=== PATIENT | female | born 1995 | race Two or more races ===

== ENCOUNTER 2016-07-31 09:48 | Emergency (ER) | payer OTHER ==
[2016-07-31 09:59] VITALS: BP 142/83; PULSE 129; TEMP 98.1; BMI 29.8
[2016-07-31] MEDS ORDERED: ACETAMINOPHEN 500 MG TABLET (FP) ONE (10:56)
--- NOTE | 2016-07-31 11:09 | PDOC ---
History of Present Illness - General Chief Complaint: Respiratory Stated Complaint: COUGH, HEAD PRESSURE Time Seen by Provider: 07/31/16 10:06 History Source: Patient Exam Limitations: No Limitations - History of Present Illness Initial Comments: 07/31/16 11:06 Patient states has been coughing with a runny nose and sinus pressure 2 weeks. Was diagnosed over these past few weeks, but had been taking over-the- counter medications until she found that positive. Patient denies fever, denies purulent drainage from nose, states has a moist cough which is giving her pleuritic type chest pain. States first visit is not schedule until late August Timing/Duration: reports: changing over time Severity: reports: mild, moderate Associated Symptoms: reports: cough, facial pain, nasal congestion, nasal drainage. denies: fever/chills Past History - Travel Traveled outside of the country in the last 30 days: No Close contact w/someone who was outside of country & ill: No - Past Medical History Allergies/Adverse Reactions: Allergies Allergy/AdvReac Type Severity Reaction Status Date / Time No Known Allergies Allergy Verified 07/31/16 09:56 Home Medications: Ambulatory Orders NK [No Known Home Medication] 07/31/16 - Reproductive History (#): 2 Para: 1 Cervical CA: No Dysfunctional Uterine Bleeding: No Ectopic : No Endometrial CA: No Polycystic Ovaries: No Therapeutic (s) & number: No Tubal Ligation: No Spontaneous : 0 - Psycho/Social/Smoking Cessation Hx Anxiety: No Suicidal Ideation: No Smoking History: Never smoked Have you smoked in the past 12 months: No Information on smoking cessation initiated: No Hx Alcohol Use: No Drug/Substance Use Hx: No Substance Use Type: None Review of Systems - Review of Systems Able to Perform ROS?: Yes Is the patient limited Yakut proficient: Yes Constitutional: Yes: Symptoms Reported, See HPI, Chills, Fever, Malaise HEENTM: Yes: See HPI, Nose Pain, Nose Congestion, Throat Pain, Throat Swelling Respiratory: Yes: Symptoms reported, See HPI, Cough. No: Wheezing Musculoskeletal: Yes: Symptoms Reported Integumentary: Yes: Symptoms Reported All Other Systems: Reviewed and Negative *Physical Exam - Vital Signs Last Vital Signs Temp Pulse Resp BP Pulse Ox 98.1 F 129 H 20 142/83 99 07/31/16 09:57 07/31/16 09:57 07/31/16 09:57 07/31/16 09:57 07/31/16 09:57 - Physical Exam General Appearance: Yes: Nourished, Appropriately Dressed, Apparent Distress HEENT: positive: SANTY, Normal ENT Inspection, TMs Normal, Pharynx Normal (no redness, swelling, exudate) Neck: positive: Supple. 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 Will treat conservatively as patient is and there is no evidence of bacterial infection *DC/Admit/Observation/Transfer Diagnosis at time of Disposition: Common cold virus - Discharge Dispostion Disposition: HOME Condition at time of disposition: Stable Admit: No - Referrals Referrals: Aspen Vila MD [Primary Care Provider] - - Patient Instructions Printed Discharge Instructions: DI for Common Cold Additional Instructions: Rest, drink lots of fluids: Teas, water, soups, Pedialyte Saltwater gargles Steamy showers/seem to face break up mucus Avoid contact with others until fevers and cough resolved Lots of handwashing and good hygiene Continue [id number] medications for symptomatic relief Tylenol or Benadryl only in , for fever and pain Followup with private physician in one to 2 days as needed Return to emergency department for worsened symptoms, fevers, dehydration - Post Discharge Activity Work/School Note: Back to Work
== END 2016-07-31 11:10 | disposition home or self-care (01) ==
LOC: JERFT 09:48
DX: J00 Acute nasopharyngitis [common cold] (principal); B97.89 Other viral agents as the cause of diseases classified elsewhere; Z3A.00 Weeks of gestation of pregnancy not specified
CPT/HCPCS: 99281-25

== ENCOUNTER 2017-03-27 14:25 | Inpatient (IN) | payer OTHER ==
[2017-03-27] MEDS ORDERED: PROMETHAZINE HCL 25 MG/1 ML VIAL IVPUSH ONE (18:32)
[2017-03-27] MEDS ORDERED: BUTORPHANOL TARTRATE 1 MG/ML VIAL IVPB ONE (18:32)
[2017-03-27] MEDS ORDERED: DINOPROSTONE 10 MG VAGINAL SUPPOSITORY VG ONE (18:34)
--- NOTE | 2017-03-27 18:41 | HP ---
Past Medical History - Admission Chief Complaint: here for labor induction History of Present Illness: 21 y/o with SIUP at 38 weeks gestation sent up from [facility] office for non reactive NST. Pt pregestational DM on metformin and was getting routing ultrasound/BPP/NST. BPP / but NST nonreactive. Pt sent up to L&D for prolonged monitoring where NST still not reactive for approx 4 hours. otherwise uncomplicated. h/o X 1. GBS negative. 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 Cardiovascular: No: CAD, HTN Pulmonary: No: COPD Gastrointestinal: No: GERD, Irritable Bowel Disease Hepatobiliary: No: Hepatitis B, Hepatitis C Renal/: No: UTI Reproductive: No: Ectopic ...: 3 ...Para: 1 ...Term: 1 ...: 0 ...Spon : 1 ...Induced : 0 ...Multiple Gestation: 0 ...EDC by [facility]: 04/09/17 Heme/Onc: No: Anemia Infectious Disease: No: HIV, MRSA, STD's Psych: No: Depression, Panic Endocrine: Yes: Diabetes Mellitus, Other (PCOS) - Past Surgical History Past Surgical History: Yes: None Hx Myomectomy: No Hx Transabdominal Cerclage: No - Smoking History Smoking history: Never smoked Have you smoked in the past 12 months: No - Alcohol/Substance Use Hx Alcohol Use: No History of Substance Use: reports: None - Social History History of Recent Travel: No Home Medications - Allergies Allergies/Adverse Reactions: Allergies Allergy/AdvReac Type Severity Reaction Status Date / Time No Known Allergies Allergy Verified 03/27/17 14:58 - Home Medications Home Medications: Ambulatory Orders Metformin HCl 500 mg PO DAILY 03/07/17 Vit #108/Iron/FA [ One Tablet] 1 tab PO DAILY 03/07/17 Review of Systems - Review of Systems Constitutional: reports: No Symptoms Eyes: reports: No Symptoms HENT: reports: No Symptoms Neck: reports: No Symptoms Cardiovascular: reports: No Symptoms Respiratory: reports: No Symptoms Gastrointestinal: reports: No Symptoms Genitourinary: reports: No Symptoms Breasts: reports: No Symptoms Reported Musculoskeletal: reports: No Symptoms Integumentary: reports: No Symptoms Neurological: reports: No Symptoms Endocrine: reports: No Symptoms Hematology/Lymphatic: reports: No Symptoms Psychiatric: reports: No Symptoms Physical Exam - Maternity Vital Signs: Vital Signs Temperature 98.4 F 03/27/17 18:00 Pulse Rate 107 H 03/27/17 18:00 Respiratory Rate 20 03/27/17 18:00 Blood Pressure 120/80 03/27/17 18:00 O2 Sat by Pulse Oximetry (%) Constitutional: Yes: Well Nourished, No Distress, Calm Eyes: Yes: Conjunctiva Clear, EOM Intact HENT: Yes: Atraumatic, Normocephalic Neck: Yes: Supple, Trachea Midline Cardiovascular: Yes: Regular Rate and Rhythm Lungs: Clear to auscultation - Abdominal Exam/OB Fundal Height: 37 Number of Fetuses: Single Presentation: Vertex Contractions: Yes Regularity: Irritability Intensity: Unaware Monitor Mode: External Category: I Accelerations: None Decelerations: None - Vaginal Exam/OB Vaginal Bleediing: No Dilatation (cm): 1 Effacement (%): 0 Presentation: Vertex/Position Station: -3 - Physical Exam Extremities: Yes: WNL Edema: No Psychiatric: Yes: Alert, Oriented Hemorrhage Risk Assessment - Risk Factors Medium Risk Factors: Yes: None High Risk Factors: Yes: None Risk Score: 1 Risk Level: Medium Risk Assessment/Plan 21 y/o with SIUP at 38 weeks, pregestational DM, non reactive NST for IOL - AFVSS - FHTS nonreactive, BPP 8/8 - IOL, cervidil placed, for re assess at 6:30 am - pre gestational DM - continue metformin, BGMS AC/HS until active labor then increase to Q2 - GBS negative
[2017-03-27 18:54] VITALS: BMI 36.6
[2017-03-27 19:47] LABS: BASOPHIL 0.2 % (0-2.0); EOSINOPHIL 0.3 % (0-4.5); MCH 23.7 pg (25.7-33.7); MCHC 31.7 g/dl (32.0-36.0); MEAN CELL VOLUME 74.7 fl (80-96); MEAN PLT VOLUME 10.6 fl (7.5-11.1); NEUTROPHILS 82.8 % (42.8-82.8); PLATELET COUNT 212 K/MM3 (134-434); RDW 16.1 % (11.6-15.6); WHITE BLOOD COUNT 11.8 K/mm3 (4.0-10.0)
[2017-03-27 20:02] LABS: INR 1.02 (0.82-1.09); PROTHROMBIN TIME (PATIENT) 11.5 SEC (9.98-11.88)
[2017-03-27 20:05] LABS: ACTIVATED PTT 25.1 SECONDS (26.9-34.4)
[2017-03-27] MEDS: metFORMIN HCL 500 MG TABLET (FP) PO SCH (20:15)
[2017-03-27 20:21] LABS: ANION GAP 12 (8-16); CALCIUM 8.3 mg/dL (8.5-10.1); CO2 21 mmol/L (21-32); CREATININE 0.5 mg/dL (0.55-1.02); GLUCOSE,RANDOM 135 mg/dL (74-106)
[2017-03-28] MEDS ORDERED: OXYTOCIN 15 UNITS/ LR 250 ML 15 UNIT/250 ML INFUS.BAG IVPB SCH (07:00)
[2017-03-28] MEDS: ELECTROLYTE-148 SOLN 1,000 ML IV SCH ×3 (09:35→23:30)
[2017-03-28] MEDS ORDERED: PROMETHAZINE HCL 25 MG/1 ML VIAL IVPUSH ONE (18:30)
[2017-03-28] MEDS ORDERED: BUTORPHANOL TARTRATE 1 MG/ML VIAL IVPB ONE (18:30)
--- NOTE | 2017-03-28 18:30 | PN ---
Ante-Partal Exam - Subjective Subjective: Pt feeling some contractions. no VB/LOF. +FM NO other complaints Vital Signs: Vital Signs Temperature 99.4 F 03/28/17 16:00 Pulse Rate 80 03/28/17 17:00 Respiratory Rate 18 03/28/17 17:00 Blood Pressure 130/80 03/28/17 17:00 O2 Sat by Pulse Oximetry (%) Bleeding: No Headache: No Visual changes: No Right upper quadrant pain: No Pain (scale 1-10): 3 - Contractions Contractions: Yes Regularity: Regular Intensity: Mild/Mod Monitor Mode: External - Exam during Labor Heart Rate: 145 Variability: Minimal Category: I Monitor Accelerations: Present Monitor Decelerations: None Exam: Vaginal Dilatation (cm): 3 Effacement (%): 50 Amniotic Membrane Status: Intact Presentation: Vertex Station: -3 - Assessment/Plan Assessment/Plan: 21 y/o wtih SIUP at 38+ weeks, pre gestational DM, IOL 2/2 nonreactive NST - FHTS cat 1, overall reassuring - IOL, s/p cervidil, pitocin at 9, cervix 3cm now, will take short break from pitocin, eat dinner and restart after dinner - GBS negative - pregestational DM, continue metformin - continue current care
[2017-03-28] MEDS: metFORMIN HCL 500 MG TABLET (FP) PO SCH (20:15)
[2017-03-29] MEDS ORDERED: METHYLERGONOVINE MALEATE 0.2 MG/1 ML AMP IM PRN (03:58)
[2017-03-29] MEDS ORDERED: WITCH HAZEL 50% (TUCKS) 40 PAD/JAR PAD TP PRN (03:58)
[2017-03-29] MEDS ORDERED: BENZOCAINE 20% 57 GM BOTTLE TP PRN (03:58)
[2017-03-29] MEDS ORDERED: BISACODYL 10 MG SUPP.RECT RC PRN (03:58)
[2017-03-29] MEDS ORDERED: BENZOCAINE 28 GM HEMORRHOIDAL OINTMENT TP PRN (03:58)
--- NOTE | 2017-03-29 03:58 | PN ---
Delivery - Delivery Vaginal Delivery: No Problems Type of Anesthesia: Local Episiotomy/Laceration: 1st degree EBL (cc): 300 Delivery, Single - Stages of Labor Date of Delivery: 03/29/17 Time of Delivery: 03:38 Date Placenta Delivered: 03/29/17 Time Placenta Delivered: 03:41 Placenta: Yes: Spontaneous - Condition of Infant Bottom Turner/Tower Crane Operator Present: No Infant Gender: Female Position: OA - 1 Minute Total Score: 9 5 Minutes Total Score: 9 - [place] Feeding Plan Initial Plan: Exclusive throughout hospitalization - Additional Information: normal from direct OA position anterior shoulder (right) delivered along with remainder of mouth and nose bulb suctioned after delivery cord clamped and cut 1st degree laceration repaired with single figure of 8 3-0 vicryl suture 3cc lidocaine injected into perineum at time of repair sponge count correct needle count correct mom stable baby stable
[2017-03-29] MEDS ORDERED: OXYTOCIN 20 UNITS in 0.9% NS 20 UNIT/1,000 ML INFUS.BAG IV SCH (04:00)
[2017-03-29] MEDS: IBUPROFEN 600 MG TABLET (FP) PO PRN ×4 (05:12→17:33)
[2017-03-29] MEDS: ACETAMINOPHEN 325 MG TABLET (FP) PO PRN ×4 (05:13→17:34)
[2017-03-29] MEDS: FERROUS SO4 325 MG TABLET (FP) PO SCH ×3 (08:26→17:33)
[2017-03-29] MEDS: PRENATAL VITAMINS W/ FOLIC ACID TABLET (FP) PO SCH (09:47)
[2017-03-29] MEDS: metFORMIN HCL 500 MG TABLET (FP) PO SCH (21:37)
[2017-03-30] MEDS: ACETAMINOPHEN 325 MG TABLET (FP) PO PRN (00:08)
[2017-03-30] MEDS: IBUPROFEN 600 MG TABLET (FP) PO PRN (00:09)
[2017-03-30 07:33] LABS: EOSINOPHIL 1.1 % (0-4.5); MCH 23.8 pg (25.7-33.7); MCHC 31.9 g/dl (32.0-36.0); MEAN CELL VOLUME 74.5 fl (80-96); NEUTROPHILS 73.3 % (42.8-82.8); PLATELET COUNT 198 K/MM3 (134-434); RDW 16.8 % (11.6-15.6); WHITE BLOOD COUNT 9.4 K/mm3 (4.0-10.0)
[2017-03-30 07:34] VITALS: BP 117/67; PULSE 83; TEMP 97.5
[2017-03-30] MEDS: PRENATAL VITAMINS W/ FOLIC ACID TABLET (FP) PO SCH ×2 (08:58→08:59)
[2017-03-30] MEDS: FERROUS SO4 325 MG TABLET (FP) PO SCH (08:58)
--- NOTE | 2017-03-30 09:15 | DS ---
Physical Exam-FINAL CANOE INSPECTOR Vital Signs: Vital Signs Temperature 97.5 F L 03/30/17 07:32 Pulse Rate 83 03/30/17 07:32 Respiratory Rate 18 03/30/17 07:32 Blood Pressure 117/67 03/30/17 07:32 O2 Sat by Pulse Oximetry (%) 100 03/29/17 04:40 Constitutional: Yes: Well Nourished Eyes: Yes: Conjunctiva Clear HENT: Yes: Atraumatic Neck: Yes: Supple Cardiovascular: Yes: Regular Rate and Rhythm Respiratory: Yes: Regular Gastrointestinal: Yes: Normal Bowel Sounds External Genitalia: Yes: Normal Vaginal Exam: Yes: Normal Cervix: Yes: Normal Uterus: Yes: Firm ....Post : Yes: Uterus firm, Moderate lochia serosa Neurological: Yes: Alert, Oriented ...Motor Strength: WNL Psychiatric: Yes: Alert, Oriented Labs: CBC, BMP 03/30/17 07:15 03/27/17 18:30 Delivery - Delivery Vaginal Delivery: No Problems Type of Anesthesia: Local Episiotomy/Laceration: 1st degree EBL (cc): 300 Delivery, Single - Stages of Labor Date 1st Stage Initiatied: 03/29/17 Time 1st Stage Initiated: 00:00 Date 2nd Stage Initiated: 03/29/17 Time 2nd Stage Initiated: 03:35 Date of Delivery: 03/29/17 Time of Delivery: 03:38 Time Placenta Delivered: 03:41 Placenta: Yes: Spontaneous - Condition of Prepared Foods Team Leader/4Th Grade Teacher Present: No Infant Gender: Female Weight: 6 lb 13 oz Position: OA Total Hours ROM (Hrs/Mins): 11m - 1 Minute Total Score: 9 5 Minutes Total Score: 9 - [place] Feeding Plan Initial Plan: Exclusive throughout hospitalization Discharge Summary Reason For Visit: Encounter for uncomplicated vaginal delivery Current Active Problems Status post normal vaginal delivery (Acute) Procedures: Principal: Normal spontaneous vaginal delivery Hospital Course: Routine care Condition: Good - Instructions Diet, Activity, Other Instructions: Return to MD office in 6 weeks, call office for an appointment. Referrals: Grisel Tay DO [Staff Physician] - Disposition: HOME - Home Medications Comprehensive Discharge Medication List: Ambulatory Orders Metformin HCl 500 mg PO DAILY 03/07/17 Vit #108/Iron/FA [ One Tablet] 1 tab PO DAILY 03/07/17
[2017-03-30] MEDS ORDERED: PRENATAL VITAMINS W/ FOLIC ACID TABLET (FP) PO SCH (10:00)
[2017-03-30] MEDS ORDERED: metFORMIN HCL 500 MG TABLET (FP) PO SCH (10:00)
[2017-03-30] MEDS ORDERED: SENNOSIDES/DOCUSATE COMBO (SENNA PLUS) TABLET (UD) PO PRN (22:00)
== END 2017-03-30 11:15 | disposition home or self-care (01) | DRG 775 ==
LOC: JDEL 14:25 → JLDR 17:55 → J3W 03-29 05:05
PROVIDERS: ADMIT Obstetrics & Gynecology; ATTEND Obstetrics & Gynecology
PROC: 3E0P7VZ Introduction of Hormone into Female Reproductive, Via Natural or Artificial Opening (ICD-10-PCS; 2017-03-27)
PROC: 0HQ9XZZ Repair Perineum Skin, External Approach (ICD-10-PCS; principal; 2017-03-29)
PROC: 10E0XZZ Delivery of Products of Conception, External Approach (ICD-10-PCS; 2017-03-29)
DX: O24.425 Gestational diabetes mellitus in childbirth, controlled by oral hypoglycemic drugs (principal); O70.0 First degree perineal laceration during delivery; Z3A.38 38 weeks gestation of pregnancy; Z37.0 Single live birth
CPT/HCPCS: 36415; 59025; 59409; 80048; 85025; 85610; 85730; 86593; 86850; 86900; 86901

== ENCOUNTER 2019-02-11 10:40 | Emergency (ER) | payer BC, OTHER ==
[2019-02-11 10:46] VITALS: BMI 33.3
[2019-02-11] MEDS ORDERED: SODIUM CHLORIDE 1,000 ML IV STA (11:09)
[2019-02-11] MEDS ORDERED: KETOROLAC TROMETHAMINE 30 MG/1 ML VIAL IVPUSH ONE (11:10)
[2019-02-11] MEDS ORDERED: KETOROLAC TROMETHAMINE 30 MG/1 ML VIAL ONE (11:37)
[2019-02-11 11:47] LABS: BASO % 0.6 % (0-2.0); EOS % 0.2 % (0-4.5); HEMATOCRIT 41.3 % (32.4-45.2); MCH 28.6 pg (25.7-33.7); MCHC 33.9 g/dl (32.0-36.0); MEAN CELL VOLUME 84.1 fl (80-96); MONO % 8.3 % (3.8-10.2); NEUT % 65.9 % (42.8-82.8); PLATELET COUNT 222 K/MM3 (134-434); RBC 4.92 M/mm3 (3.60-5.2); RDW 13.3 % (11.6-15.6); WHITE BLOOD COUNT 5.1 K/mm3 (4.0-10.0)
--- NOTE | 2019-02-11 12:08 | PDOC ---
History of Present Illness - General Chief Complaint: Pain Stated Complaint: ABD.PAIN/ HEADACHES/HEAVY MENSTRUAL PERIOD Time Seen by Provider: 02/11/19 11:01 History Source: Patient Exam Limitations: No Limitations - History of Present Illness Travel History: No Initial Comments: 02/11/19 11:05 23-year-old female presents to ED with complaints of heavy painful menstrual cycle which began yesterday. Patient states has history of PCOS but denies any history of endometriosis or fibroids. Patient states called her CUSTOMER SUPPLY COORDINATOR Dr. Nur but told her to come to the ER for further evaluation. Patient denies fever, chills, nausea but does state mild dizziness for the past few hours. Patient has no other complaints at this time Timing/Duration: reports: constant Quality: reports: mild, moderate, cramping Abdominal Pain Onset Location: reports: suprapubic Pain Radiation: reports: no radiation Activities at Onset: reports: none Aggravating Factors: improves with: None Alleviating Factors: improves with: None Past History - Travel Traveled outside of the country in the last 30 days: No Close contact w/someone who was outside of country & ill: No - Past Medical History Allergies/Adverse Reactions: Allergies Allergy/AdvReac Type Severity Reaction Status Date / Time No Known Allergies Allergy Verified 02/11/19 10:45 Home Medications: Ambulatory Orders metFORMIN HCL [Metformin HCl] 500 mg PO DAILY 03/07/17 Acetaminophen/Caffeine/Butalb [Fioricet -] 1 tab PO TID PRN #21 tablet MDD 3 07/01 Nitrofurantoin Monohyd/M-Cryst [Macrobid -] 100 mg PO BID #14 capsule 02/11/19 Asthma: No Cancer: No Cardiac Disorders: No COPD: No Diabetes: Yes (diabetic on metformin since prior to ) HTN: No Seizures: No Thyroid Disease: No Other medical history: PCOS - Reproductive History (#): 2 Para: 1 Cervical CA: No Dysfunctional Uterine Bleeding: No Ectopic : No Endometrial CA: No Polycystic Ovaries: No Therapeutic (s) & number: No Tubal Ligation: No Spontaneous : 0 - Psycho Social/Smoking Cessation Hx Smoking History: Never smoked Have you smoked in the past 12 months: No Information on smoking cessation initiated: No Hx Alcohol Use: No Drug/Substance Use Hx: No Substance Use Type: None Hx Substance Use Treatment: No Patient Lives Alone: No Lives with/in: spouse/SO Review of Systems - Review of Systems Able to Perform ROS?: Yes Constitutional: Yes: Weakness HEENTM: No: Symptoms Reported Respiratory: No: Symptoms reported Cardiac (ROS): Yes: Lightheadedness ABD/GI: Yes: Abdominal cramping : Yes: Discharge (Vaginal bleeding with clots). No: Symptoms Reported Musculoskeletal: No: Symptoms Reported Integumentary: No: Symptoms Reported Neurological: No: Symptoms reported *Physical Exam - Vital Signs Last Vital Signs Temp Pulse Resp BP Pulse Ox 99.6 F 105 H 18 132/87 100 02/11/19 10:44 02/11/19 10:44 02/11/19 10:44 02/11/19 10:44 02/11/19 10:44 - Physical Exam General Appearance: Yes: Nourished, Appropriately Dressed. No: Apparent Distress HEENT: negative: Pale Conjunctivae Neck: positive: Normal Thyroid Respiratory/Chest: positive: Lungs Clear, Normal Breath Sounds. negative: Respiratory Distress, Accessory Muscle Use Cardiovascular: positive: Regular Rhythm, Tachycardia. negative: Murmur Female Pelvic Exam: positive: vaginal bleeding (Bright red blood with clots in moderate amount) Gastrointestinal/Abdominal: positive: Soft, Tenderness (Mid suprapubic) Musculoskeletal: negative: CVA Tenderness Extremity: positive: Normal Inspection Integumentary: positive: Normal Color, Warm, Moist Neurologic: positive: Motor Strength 5/5 (Ambulatory) ED Treatment Course - LABORATORY CBC & Chemistry Diagram: 02/11/19 11:21 02/11/19 11:10 Medical Decision Making - Medical Decision Making 02/11/19 12:11 Chief complaint: Heavy painful menstrual cycle since yesterday now causing dizziness patient with a history of PCOS Exam: right red blood and moderate amount: with small clots slightly tachycardic mid suprapubic tenderness on exam Plan: Labs, urine and will order ultrasound 02/11/19 13:02 Laboratory Tests 02/11/19 02/11/19 11:25 11:25 Urine Protein 3+ H Urine Ketones 1+ H Urine Blood 3+ H Urine Nitrite Positive Urine Bilirubin 3+ H Urine Urobilinogen 2.0 H Ur Leukocyte Esterase 3+ H Urine HCG, Qual Negative U cx sent. Pt ordered for ultrasound 02/11/19 14:56 Laboratory Tests 02/11/19 02/11/19 02/11/19 11:10 11:21 11:25 WBC 5.1 Hgb 14.0 Hct 41.3 D Absolute Neuts (auto) 3.3 Sodium 139 Potassium 3.8 Chloride 106 Carbon Dioxide 26 Anion Gap 7 L BUN 8.3 Creatinine 0.9 Est GFR (CKD-EPI)AfAm 103.00 Random Glucose 88 Calcium 9.2 Total Bilirubin 0.7 AST 21 ALT 26 Alkaline Phosphatase 63 Total Protein 7.9 Albumin 4.0 Urine Protein 3+ H Urine Ketones 1+ H Urine Blood 3+ H Urine Nitrite Positive Urine Bilirubin 3+ H Urine Urobilinogen 2.0 H Ur Leukocyte Esterase 3+ H Urine WBC (Auto) 3+ Urine RBC (Auto) 3+ Patient states feeling better. Ultrasound shows normal size uterus with normal vascular flow to bilateral ovaries. Patient will be treated for UTI No previous micro on file. Patient will be treated with Macrobid Discharge - Discharge Information Problems reviewed: Yes Clinical Impression/Diagnosis: UTI (urinary tract infection) Condition: Improved Disposition: HOME - Additional Discharge Information Prescriptions: Acetaminophen/Caffeine/Butalb [Fioricet -] 1 tab PO TID PRN #21 tablet MDD 3 PRN Reason: Headache Nitrofurantoin Monohyd/M-Cryst [Macrobid -] 100 mg PO BID #14 capsule - Follow up/Referral Referrals: Amilcar Young MD [Staff Physician] - - Patient Discharge Instructions Patient Printed Discharge Instructions: DI for Urinary Tract Infection (UTI) Additional Instructions: Take medication as prescribed. Drink plenty of fluids. Wipe from front to back. Return to ED if symptoms worsen. - Post Discharge Activity
[2019-02-11 12:16] LABS: BILIRUBIN,TOTAL 0.7 mg/dL (0.2-1); BLOOD UREA NITROGEN 8.3 mg/dL (7-18); CALCIUM 9.2 mg/dL (8.5-10.1); CREATININE 0.9 mg/dL (0.55-1.3); POTASSIUM 3.8 mmol/L (3.5-5.1); TOT PROT 7.9 g/dl (6.4-8.2)
[2019-02-11 13:01] LABS: URINE APPEARANCE Turbid; URINE BILIRUBIN 3+ (NEGATIVE); URINE COLOR Red; URINE GLUCOSE (UA) Negative (NEGATIVE); URINE KETONE 1+ (NEGATIVE); URINE LEUK ESTERASE 3+ (NEGATIVE); URINE NITRITE Positive (NEGATIVE); URINE PROTEIN 3+ (NEGATIVE)
[2019-02-11 13:25] LABS: HYALINE CASTS NONE SEEN /lpf (0-8); URINE RBC 3+ /hpf (0-4); URINE WBC 3+ /hpf (0-5)
[2019-02-11 13:26] LABS: URINE BACTERIA 1+ /hpf (NEGATIVE)
[2019-02-11] MEDS ORDERED: ACETAMINOPHEN/CAFFEINE/BUTALBITAL 1 TAB PO ONE (15:27)
[2019-02-11] MEDS ORDERED: ACETAMINOPHEN/CAFFEINE/BUTALBITAL 1 TAB ONE (15:36)
[2019-02-11 15:41] VITALS: BP 130/94; PULSE 100; TEMP 98.1
== END 2019-02-11 15:42 | disposition home or self-care (01) ==
LOC: JER 10:40
PROC: 3E0333Z Introduction of Anti-inflammatory into Peripheral Vein, Percutaneous Approach (ICD-10-PCS; principal; 2019-02-11)
PROC: 3E0337Z Introduction of Electrolytic and Water Balance Substance into Peripheral Vein, Percutaneous Approach (ICD-10-PCS; 2019-02-11)
DX: N39.0 Urinary tract infection, site not specified (principal)
CPT/HCPCS: 36415; 76856-TC; 80053; 81003; 84703; 85025; 87086; 99283-25; J7030

== ENCOUNTER 2020-01-11 04:34 | Day surgery (SDC) | payer BC, OTHER ==
[2020-01-07 13:15] VITALS: BMI 34.9
[2020-01-11] MEDS ORDERED: PROPOFOL 20 ML ONE ×3 (07:21→08:43)
[2020-01-11] MEDS ORDERED: DEXAMETHASONE SOD PHOSPHATE 4 MG/1 ML VIAL ONE (07:21)
[2020-01-11] MEDS ORDERED: GLYCOPYRROLATE 0.2 MG/1 ML VIAL ONE (07:21)
[2020-01-11] MEDS ORDERED: KETOROLAC TROMETHAMINE 30 MG/1 ML VIAL ONE (07:21)
[2020-01-11] MEDS ORDERED: ROCURONIUM BROMIDE 50 MG/5 ML SYRINGE ONE ×2 (07:22)
[2020-01-11] MEDS ORDERED: NEOSTIGMINE METHYLSULFATE 0.5 MG/ML - 10 ML MDV ONE ×2 (07:22)
[2020-01-11] MEDS ORDERED: MIDAZOLAM HCL 2 MG/2 ML SINGLE DOSE VIAL ONE (07:22)
[2020-01-11] MEDS ORDERED: IBUPROFEN 800 MG/8 ML IJ IVPB PRN (07:39)
[2020-01-11] MEDS ORDERED: IBUPROFEN 600 MG TABLET (FP) PO PRN (07:39)
[2020-01-11] MEDS ORDERED: ACETAMINOPHEN 325 MG TABLET (FP) PO PRN (07:39)
--- NOTE | 2020-01-11 07:39 | HP ---
History & Physical Update - History History: No Change - Physical Physical: No Change - Assessment Assessment: No Change - Plan Plan: No Change (see written H&P in chart)
[2020-01-11] MEDS ORDERED: ceFAZolin SODIUM 1 GM VIAL IVPB ONE (08:10)
[2020-01-11] MEDS ORDERED: ceFAZolin SODIUM 1 GM VIAL ONE (08:36)
[2020-01-11] MEDS ORDERED: LIDOCAINE HCL 2% JELLY (5 ML/TUBE) ONE (08:36)
[2020-01-11] MEDS ORDERED: LIDOCAINE HCL/PF 2% SDV 5ML VIAL ONE (08:36)
[2020-01-11] MEDS ORDERED: METOPROLOL TARTRATE 5 MG/5 ML VIAL ONE (08:37)
[2020-01-11] MEDS ORDERED: BUPIVACAINE HCL 0.5% 250 MG/50 ML VIAL IJ ONE (08:42)
--- NOTE | 2020-01-11 09:01 | OP ---
Operative Note - Note: Operative Date: 01/11/20 Pre-Operative Diagnosis: permanent sterilization Operation: laparoscopic bilateral salpingectomy Findings: normal appearing ovaries and fallopian tubes bilaterally; right paratubal cyst x 2 Post-Operative Diagnosis: Same as Pre-op Surgeon: Rach Nur Ceo And Founder: Yobani Lewis Anesthesiologist/ENGRAVER PANTOGRAPH: Estefany Peacock Anesthesia: General Specimens Removed: left fallopian tube; right fallopian tubes with paratubal cysts Estimated Blood Loss (mls): 5 Drains, Volume Out (mls): 100 (clear yellow urine) Fluid Volume Replaced (mls): 700 Operative Report Dictated: Yes
--- NOTE | 2020-01-11 09:42 | OP ---
DATE OF OPERATION: 01/11/2020 SURGEON: Arik Nur MD BARREL CUTTER: Yobani Lewis MD ANESTHESIA: Estefany Peacock, REF-CRN ESTIMATED BLOOD LOSS: 5 mL FLUIDS GIVEN: 700 URINE OUTPUT: 100 INDICATION: Patient is a 24-year-old desiring permanent sterilization. Risks, benefits, alternatives, complications of the procedure were discussed including infection, bleeding, damage to surrounding organs such as bowel, bladder, uterine perforation, risk of tubal ligation failure including ectopic , risk of regret. She voiced understanding. PROCEDURE IN DETAIL: She was brought to the operating room. When anesthesia was found to be adequate, patient was prepped and draped in normal sterile fashion, placed in the dorsal lithotomy position in the [facility]. A weighted speculum was placed in the posterior vagina. Anterior lip of the cervix was grasped using a single-tooth tenaculum and a HUMI uterine manipulator was inserted into the cervical and uterine cavity. Attention brought to the abdomen. A 5-mm skin incision was made with a knife and the abdomen was insufflated using a Veress needle and intraperitoneal placement was confirmed using a water drop test. The abdomen was insufflated with carbon dioxide gas to an operating pressure of 15 mmHg and a 5-mm trocar was placed under direct visualization. Attention was brought to the left lower quadrant. A 5-mm trocar was placed under direct visualization, then right lower quadrant where a 5-mm trocar was placed under direct visualization. Attention was brought to the left fallopian tube, was followed to the fimbriated end. The fallopian tube was then excised using the LigaSure and removed from the abdominal cavity and sent to Pathology. Attention was brought to the right fallopian tube which was followed to the fimbriated end. Two paratubal cysts were noted. The fallopian tube and the paratubal cysts were excised using the LigaSure and removed from the abdominal cavity and brought through and sent to Pathology. Good hemostasis was noted. All trocars were removed. The abdomen was desufflated and all trocars and instruments removed. The 5-mm incisions were closed using a 4-0 Biosyn in interrupted fashion. The patient was awoken from anesthesia, brought to recovery room in stable condition. ARIK NUR M.D. [id number]
[2020-01-11] MEDS ORDERED: ONDANSETRON 4 MG/2 ML VIAL IVPUSH PRN (11:11)
[2020-01-11] MEDS ORDERED: oxyCODONE HCL 5 MG TABLET PO PRN ×2 (11:11)
[2020-01-11] MEDS ORDERED: LACTATED RINGERS SOLUTION 1,000 ML IV SCH (11:15)
[2020-01-11 11:56] VITALS: BP 118/69; PULSE 99; TEMP 98
--- NOTE | 2020-01-12 15:43 | PATH ---
Surgical Pathology Report Patient Name: ELIZABETH PHILLIPS [facility]. Rec. #: [id number] /Age/Gender: 1995 (Age: 24) / F Account: [id number] Location: [facility] SURGICAL Taken: 01/11/2020 Received: 01/11/2020 Reported: 01/12/2020 Physicians: Rach Nur Specimen(s) Received A: LEFT FALLOPIAN TUBE B: RIGHT FALLOPIAN TUBE Clinical History Encounter for sterilization Final Diagnosis A. FALLOPIAN TUBE, LEFT, SALPINGECTOMY: UNREMARKABLE FALLOPIAN TUBE (INCLUDING FIMBRIATED END AND FULL LUMINAL PORTION). B. FALLOPIAN TUBE, RIGHT, SALPINGECTOMY: FALLOPIAN TUBE WITH PARATUBAL CYSTS (INCLUDING FIMBRIATED END AND FULL LUMINAL PORTION). Electronically Signed Ting Burciaga M.D. Gross Description A. Received in formalin labeled "left fallopian tube," is a 6.5 cm in length fimbriated fallopian tube. The outer surface is cotton-pink and smooth. Sectioning reveals an unremarkable lumen. Glass Inserter sections are submitted in 2 cassettes as follows: 1-fimbria; 2-cross sections of fallopian tube. B. Received in formalin labeled "right fallopian tube," is a 6.5 cm in length fimbriated fallopian tube. There are 2 pedunculated paratubal cysts attached, averaging 0.8 cm in greatest dimension. The outer surface of the fallopian tube is cotton-pink and smooth. Sectioning reveals unremarkable lumen. Glass Inserter sections are submitted in 2 cassettes as follows: 1-fimbria and paratubal cysts; 2-cross sections of fallopian tube. [facility]
== END 2020-01-11 12:04 | disposition home or self-care (01) ==
LOC: JASU-SURG 04:34
PROVIDERS: ATTEND Obstetrics & Gynecology
PROC: 0UB74ZZ Excision of Bilateral Fallopian Tubes, Percutaneous Endoscopic Approach (ICD-10-PCS; principal; 2020-01-11 07:30)
DX: Z30.2 Encounter for sterilization (principal); N83.8 Other noninflammatory disorders of ovary, fallopian tube and broad ligament
CPT/HCPCS: 36415; 81025; 84703; 86850; 86900; 86901; 88302-TC; 94760